=== PATIENT | male | born 1930 | race Caucasian/White ===

== ENCOUNTER 2016-06-07 06:57 | Day surgery (SDC) | payer MEDICARE, BC ==
[~2016-06-07] VITALS: Ht 167.6 cm; Wt 57.7 kg
[2016-08-22] MEDS ORDERED: REMERON DPS15 MG PO (10:37)
[2016-08-22] MEDS ORDERED: AUGMENTIN 875-1 EACH PO (10:38)
[2016-08-22] MEDS ORDERED: PEPCID DPS20 MG PO (10:38)
[2016-08-22] MEDS ORDERED: FLOMAX DPS0.4 MG PO (10:38)
[2016-08-22] MEDS ORDERED: MIRALAX PACKET17 GM PO (10:38)
[2016-08-22] MEDS ORDERED: OXY IR DPS5 MG PO (10:38)
[2016-08-22] MEDS ORDERED: ECOTRIN81 MG PO (10:38)
[2016-08-22] MEDS ORDERED: ZESTRIL DPS2.5 MG PO (10:39)
[2016-08-22] MEDS ORDERED: PROSCAR DPS5 MG PO (10:39)
[2016-08-22] MEDS ORDERED: LOVENOX DP30 MG/0.3 PO (10:39)
[2016-08-22] MEDS ORDERED: TOPROL XL DPS25 MG PO (10:39)
== END 2016-06-07 11:18 | disposition home or self-care (01) ==
LOC: RAD.S 06:57 → EDSTATUS 08:00 → RAD.S 08:00
PROC: 3E0 Administration, Physiological Systems and Anatomical Regions, Introduction (ICD-10-PCS; principal; 2016-06-07)
DX: C78.7 Secondary malignant neoplasm of liver and intrahepatic bile duct (principal); Z85.038 Personal history of other malignant neoplasm of large intestine; Z98.890 Other specified postprocedural states

== ENCOUNTER 2016-06-16 06:33 | Day surgery (SDC) | payer MEDICARE, BC ==
[~2016-06-16] VITALS: Ht 167.6 cm; Wt 57.0 kg
[2016-08-22] MEDS ORDERED: REMERON DPS15 MG PO (10:37)
[2016-08-22] MEDS ORDERED: MIRALAX PACKET17 GM PO (10:38)
[2016-08-22] MEDS ORDERED: PEPCID DPS20 MG PO (10:38)
[2016-08-22] MEDS ORDERED: FLOMAX DPS0.4 MG PO (10:38)
[2016-08-22] MEDS ORDERED: AUGMENTIN 875-1 EACH PO (10:38)
[2016-08-22] MEDS ORDERED: ECOTRIN81 MG PO (10:38)
[2016-08-22] MEDS ORDERED: OXY IR DPS5 MG PO (10:38)
[2016-08-22] MEDS ORDERED: ZESTRIL DPS2.5 MG PO (10:39)
[2016-08-22] MEDS ORDERED: LOVENOX DP30 MG/0.3 PO (10:39)
[2016-08-22] MEDS ORDERED: TOPROL XL DPS25 MG PO (10:39)
[2016-08-22] MEDS ORDERED: PROSCAR DPS5 MG PO (10:39)
== END 2016-06-16 12:10 | disposition home or self-care (01) ==
LOC: RAD.S 06:33
PROC: 04H Lower Arteries, Insertion (ICD-10-PCS; principal; 2016-06-16)
DX: C78.7 Secondary malignant neoplasm of liver and intrahepatic bile duct (principal); C18.9 Malignant neoplasm of colon, unspecified; Z79.899 Other long term (current) drug therapy

== ENCOUNTER 2016-08-10 15:25 | Inpatient (IN) | payer MEDICARE, BC ==
[~2016-08-10] VITALS: Ht 172.7 cm; Wt 54.0 kg
--- NOTE | ~2016-08-10 | ECH ---
Transthoracic Echocardiography Report (TTE) Demographics Patient Name DUY BRIGHT Date of Study 08/16/2016 Patient Number [id number] Visit Number [id number] Date of 1930 Room Number 517 Accession Number [id number] Gender Male Age 86 year(s) Referring Frank Mcclain Microbiology Supervisor Callie Vargas [facility] Physician Physician Interpreting Candie Dobbins MD School Manager Physician Supervising Ordering Physician Frank Mcclain MD, MD/P Nurse Stress Roustabout Pusher Conclusions Summary Technically fair exam due large pectus excavatum. The estimated left ventricular ejection fraction is 20-25%. Diastolic assessment reveals Grade I diastolic dysfunction. The interatrial septum appears aneurysmal. No significant valvular abnormalities. Procedure Type of Study TTE procedure:Echo Complete SF. Procedure Date Date: 08/16/2016 Start: 08:13 AM Technical Quality: Adequate visualization Additional Indications:Postop Afib,BBB,Pectus Excavatum Appropriate Use Criteria: 9 Height: 68 inches Weight: 126 pounds BSA: 1.68 m Rhythm: Irregular HR: 70 bpm BP: 125/69 mmHg M-Mode/2D Measurements LV Diastolic Dimension: 5 cm LV Systolic Dimension: 4.7 cm LV Septum Diastolic: 0.8 cm LV PW Diastolic: 0.87 cm AO Root Dimension: 2.96 cm Cardiac Output: 3.81 l/min LA Dimension: 3.31 cm Cardiac Index: 2.27 l/min*m RV Diastolic Dimension: 3.71 cm LA volume index: 31 ml/m LVOT: 1.93 cm LVOT VTI: 18.6 cm RV Base: 2.8 cm LV Stroke volume: 54.39 ml RV Mid: 1.8 cm LV Stroke volume index: 32.38 ml/m TAPSE: 1.5 cm TDI-S': 14 cm/s Doppler Measurements AV Peak Velocity: 1.24 m/s MV Peak E-Wave: 0.44 m/s AV Peak Gradient: 6.13 mmHg MV Peak A-Wave: 0.69 m/s AV Mean Gradient: 2.9 mmHg MV E/A Ratio: 0.64 LVOT Peak Velocity: 0.83 m/s AV Area (Continuity):2.01 cm MV Deceleration Time: 305 msec TR Velocity:2.52 m/s TR Gradient:25.4 mmHg Estimated PASP: 28.4 mmHg Estimated RAP:3 mmHg A' Septal Velocity: 0.14 m/s Estimated RVSP: 28 mmHg A' Lateral Velocity: 0.1 m/s E' Septal Velocity: 0.05 m/s E' Lateral Velocity: 0.12 m/s RA Area: 14.04 cm Findings Left Ventricle The left ventricle is normal in size . Diastolic assessment reveals Grade I diastolic dysfunction. Right Ventricle Normal right ventricle structure and function. Left Atrium Normal left atrial size. The interatrial septum appears aneurysmal. Right Atrium Normal right atrial size. Mitral Valve Normal mitral valve structure and function. Trivial mitral regurgitation by color Doppler. Aortic Valve The aortic valve was not well imaged. Tricuspid Valve Normal tricuspid valve structure and function. Trivial tricuspid regurgitation by color Doppler. Normal pulmonary pressures. Pulmonic Valve The pulmonic valve is not well visualized. Pericardial Effusion No evidence of pericardial effusion. Miscellaneous Visualized portions of the aortic root appear normal in size. Ascending aorta not well visualized. Suboptimal subcostal window to evaluate the IVC and interatrial septum. Pleural Effusion No evidence of pleural effusion. Contractility Score LV regional wall motion:(0-Non visualized 1-Normal 2-Hypokinesis 3-Akinesis 4-Dyskinesis 5-Aneurysm) Signature
--- NOTE | ~2016-08-10 | CO ---
ADMIT: 08/10/2016 RM/LOC: 517 [facility] MR#: [id number] [address] [address] DUY BRIGHT [address] [place] [address] Consultation Report SEX: M AGE: 86 : 1930 DATE OF CONSULTATION: 08/10/2016 ATTENDING PHYSICIAN: Froylan Marie CONSULTING PHYSICIAN: Matt Alegria MD REASON FOR CONSULTATION: Bowel obstruction. HISTORY OF PRESENT ILLNESS: This patient is a very pleasant, 86-year-old male who looks like back in November Dr. Browne did a colonoscopy I believe over at the surgery center, found a mass in his cecum. Subsequent workup showed a large lesion in his liver and so no surgery was done. He has been undergoing I believe chemotherapy and had some radiation-type beads or treatments of some type done to his liver and this liver lesion. Now, however, he comes in with a bowel obstruction. In visiting with me, it sounds like he has not had any real BM or gas for maybe a couple of weeks. He has passed just a little small BM here today. He otherwise though actually looks pretty good other than he is quite thin. Weight is probably lost 40 pounds, weighs about 106 pounds now at this point. He has not really eaten anything since Tuesday, this makes him full. He has tried mag citrate, Senokot, and Dulcolax. PAST MEDICAL HISTORY: Significant for the above. He has had previous hernia repair years ago somewhere else before he lived in the area. MEDICATIONS: He takes some pantoprazole for GERD. ALLERGIES: HE HAS NO KNOWN DRUG ALLERGIES. SOCIAL HISTORY: Denies any significant tobacco, alcohol, or illicit drugs. FAMILY HISTORY: Otherwise, noncontributory. PHYSICAL EXAMINATION: VITAL SIGNS: He is afebrile. Vital signs are stable. HEENT: His sclerae are nonicteric. CHEST: Appears clear anteriorly. HEART: Regular rate and rhythm. ABDOMEN: Thin, soft, mild distention and a little bit of discomfort in the lower abdomen when pushing. He does have positive bowel sounds. Well-healed repair from previous right inguinal hernia. EXTREMITIES: Without any clubbing, cyanosis, or edema. ADMIT: 08/10/2016 RM/LOC: 517 [facility] MR#: [id number] [address] [address] KAILADUY DYER [address] [place] [address] Consultation Report SEX: M AGE: 86 : 1930 ASSESSMENT AND PLAN: I had a long talk with GI, said this certainly look to be a fairly significant obstruction. I doubt that this can relieve itself on his own and most likely going to require surgery. That may require removing the mass, resecting bowel possibly leaving him with an ostomy just depends on what we find when we get in there. May be our only option, I do not have anything else good if he does not open up and from the looks of his CT scan. I talked to him about thinking about that, and we are going to have to make some decisions soon. I talked to him about the possibility if we do not do anything with this perforating him getting sick and dying of sepsis from that. We will revisit in the morning, but most likely in the next 24 to 48 hours, he is going to need surgery. Matt Alegria MD/ edith JOB #: [id number] CC: Froylan Marie, Attending Physician Froylan Marie, Family Physician
--- NOTE | 2016-08-13 09:05 | ER ---
ADMIT: 08/10/2016 RM/LOC: 517 [facility] MR#: [id number] 2620 [facility] [address] [place] [id number] DUY BRIGHT [address] [place] [address] Emergency Room Report SEX: M AGE: 86 : 1930 DATE: 08/10/2016 ADDENDUM: Please see my T-sheet for complete review of systems, past medical history, and physical exam. CHIEF COMPLAINT: Constipation. HISTORY OF PRESENT ILLNESS: This is an 86-year-old, white male, who presents with 7 days of constipation. The patient was actually brought here by a neighbor today as he has not been eating since Tuesday and she was concerned about him. 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 Describes pain as a 5/10 with some fullness. He has some associated nausea. No vomiting. Loss of appetite. The patient states he did use mag citrate this morning in an attempt to get his bowels to move. He has been using Dulcolax suppositories and Senokot as well. The patient states that he has not been taking care of himself very well as much of his time is devoted to taking care of his who lives at home with the patient with dementia. PAST MEDICAL HISTORY: Liver cancer and colon cancer and stated above. ALLERGIES: NO KNOWN DRUG ALLERGIES. COURSE IN THE EMERGENCY ROOM: The patient was seen and examined. He is afebrile and nontoxic. He does have significant distention and tenderness about his entire abdomen. No guarding or rebound. Back is normal inspection. Skin is warm and dry. I did get a KUB on him initially concerning for possible small bowel obstruction. Recommended followup CT. Did complete CT abdomen and pelvis IV contrast, shows a small bowel obstruction, transition point in the right lower quadrant. CBC; white count 4.7, hemoglobin 12, hematocrit 36.1, platelets 186. Chemistry; sodium 137, potassium 4.1, BUN 18, glucose 78, creatinine 1.2. I did phone Dr. Marie, made him familiar with the patient. He will admit to the hospital for further evaluation and management. IMPRESSION: 1. Small bowel obstruction. 2. Colon cancer metastatic to the liver. DISPOSITION: The patient will be admitted to the care of Dr. Marie. Discharged to the floor in stable condition. PARISH Retana / Mahendra Le MD / modl JOB #: [id number] CC: Froylan Marie MD, Attending Physician ADMIT: 08/10/2016 RM/LOC: [address] [place] [address] MR#: [id number] [address] [place] [id number] DUY BRIGHT [address] [place] [address] Emergency Room Report SEX: M AGE: 86 : 1930 Froylan Marie MD, Family Physician
--- NOTE | 2016-08-14 08:50 | HP ---
ADMIT: 08/10/2016 RM/LOC: 517 [facility] MR#: [id number] 26[address] [facility] [address] [place], [place] [address] DUY BRIGHT [address] [place] [address] History and Physical SEX: M AGE: 86 : 1930 DATE OF SERVICE: 08/10/2016 CHIEF COMPLAINT: Abdominal pain. HISTORY OF PRESENT ILLNESS: This is an 86-year-old, who presented with some abdominal pain. He reports he has not had a bowel movement in about two weeks. He is actually uncertain of how long it has been. He has had some crampy abdominal pain, which has been severe. He denies passing gas, stool. He said "a while ago," he had some loose stools, but nothing recent and definitely not in the last week. He says he has not had anything to eat since Tuesday. He feels really weak and overall not well. His situation is overall complicated by him having full caretaking responsibilities for his who has dementia. Apparently, he has been trying to get her into [facility], but this just has not happened yet due to he and the family are unwilling as to really commit to having this done. PAST MEDICAL HISTORY: Metastatic colon cancer. CURRENT MEDICATIONS: The patient reports he is not really taking any medications at this point. The only medications that he was taking was magnesium citrate, Senokot, and Dulcolax. ALLERGIES: HE DENIES ANY ALLERGIES. PAST SURGICAL HISTORY: Includes hernia repair. REVIEW OF SYSTEMS: Other complete review of systems, loss of appetite and some nausea. FAMILY HISTORY: Reviewed, but noncontributory. PHYSICAL EXAMINATION: VITAL SIGNS: From the emergency room, blood pressure 154/78, heart rate 73, respirations 16, temperature 97.0, and 100% on room air. GENERAL: This is a thin appearing 86-year-old gentleman. No apparent distress. He is alert. He is oriented. HEENT: He is wearing glasses. Head is normocephalic and atraumatic. He is wearing a hat to keep himself warm. Throat is clear. Pupils are equal, round, and reactive to light and accommodation. Extraocular muscles are intact. NECK: Supple. Trachea midline. Thyroid not palpable. HEART: Regular rate and rhythm. LUNGS: Diminished, but clear bilaterally. He has pectus excavatum. ABDOMEN: Mildly distended, soft, and tender to deep palpation especially in the right lower quadrant. LOWER EXTREMITIES: Thin. He can move all extremities equally bilaterally. NEUROLOGIC: Cranial nerves are intact. ADMIT: 08/10/2016 RM/LOC: 517 [facility] MR#: [id number] [address] [address] DUY BRIGHT [address] [place] [address] History and Physical SEX: M AGE: 86 : 1930 LABORATORY AND X-RAY DATA: He had moderately distended gas-filled loops of bowel on x-ray. CT showed small bowel obstruction due to a hyperemic 4.7 mass in the right lower quadrant, and he also has a known large metastatic mass in the right lobe of the liver, which is unchanged. CBC shows a white count of 4.7, hemoglobin 12.0, and platelets of 196. CMP; sodium 137, potassium 4.0, chloride 99, bicarb 28, BUN 18, creatinine 1.8, albumin 3.0, AST is 49, and calcium is 10.0. ASSESSMENT: 1. Small bowel obstruction. 2. Metastatic colon cancer. 3. Malnutrition by history. PLAN: He will be admitted to the hospital, given some IV fluid, and we will consult Surgery for possible surgical correction of this issue. His most recent CT from three weeks ago does not mention the right lower quadrant mass; however, going upon further review, I have looked back in his previous scans, and it is a cecal mass that is commented on back in April. We will control his pain as best we can. In regard to his social situation, we will have our social workers to try to help get his into [facility], which is where they have been leading her to go anyway. Since we will have to do no anticoagulation for VTE prophylaxis right now because of his chance for upcoming surgeries, probably TEDs and pneumatics for now. Froylan Marie MD/ edith JOB #: [id number] CC: Froylan Marie, Attending Physician Froylan Marie, Family Physician
[2016-08-22] MEDS ORDERED: REMERON DPS15 MG PO (10:37)
[2016-08-22] MEDS ORDERED: OXY IR DPS5 MG PO (10:38)
[2016-08-22] MEDS ORDERED: MIRALAX PACKET17 GM PO (10:38)
[2016-08-22] MEDS ORDERED: ECOTRIN81 MG PO (10:38)
[2016-08-22] MEDS ORDERED: FLOMAX DPS0.4 MG PO (10:38)
[2016-08-22] MEDS ORDERED: AUGMENTIN 875-1 EACH PO (10:38)
[2016-08-22] MEDS ORDERED: PEPCID DPS20 MG PO (10:38)
[2016-08-22] MEDS ORDERED: ZESTRIL DPS2.5 MG PO (10:39)
[2016-08-22] MEDS ORDERED: TOPROL XL DPS25 MG PO (10:39)
[2016-08-22] MEDS ORDERED: PROSCAR DPS5 MG PO (10:39)
[2016-08-22] MEDS ORDERED: LOVENOX DP30 MG/0.3 PO (10:39)
--- NOTE | 2016-08-25 16:19 | OR ---
ADMIT: 08/10/2016 RM/LOC: 517 [facility] MR#: [id number] 2620 [facility] [address] [place] [phone] DUY BRIGHT [address] [place] [address] Operative/Delivery Room Report SEX: M AGE: 86 : 1930 SURGERY DATE: 08/11/2016 SURGEON: Matt Alegria MD PREOPERATIVE DIAGNOSIS: Bowel obstruction secondary to cecal mass. POSTOPERATIVE DIAGNOSIS: Bowel obstruction secondary to cecal mass. PROCEDURE: Open right hemicolectomy. ASSISTANTS: Chuckie Browne MD and PARISH Tavarez. ANESTHESIA: General endotracheal tube anesthesia. ESTIMATED BLOOD LOSS: 100 mL. INDICATION FOR PROCEDURE: Please see consult notes in chart after the specimen was right colon. After the risks, benefits, possible complications, and alternatives have been explained, and informed consent had been obtained, the patient was taken back to the operating room, underwent general endotracheal tube anesthesia, and the surgical field was prepped and draped in a sterile manner. A midline incision was made down through skin and subcutaneous tissue, got into the fascia, opened it up, and for the length of the incision that was enlarged. Started removing some of the small bowel, and actually he has had no other surgeries. No significant adhesions. Basically right where the terminal ileum comes in at the ileocecal valve, it is obstructed right at this mass, the size of a baseball at his cecum. Slowly, started kind of freeing up the lateral attachments of the right colon and in doing that trying to make sure he is so thin and this was stuck pretty good that we were identifying the ureter. At one point, things were really kind of caught up down there and so I kind of moved on, went up and took down the hepatic flexure. Clamped, divided, and ligated some vessels. He had a lot of oozing just from some extra kind of venous type vessels and stuff along the peritoneum laterally and up around there. We lost a little blood, but nothing significant. Cleaned off some of the omentum coming off the transverse colon, picked an area distally. I thought was going to be good as well as proximally. Clamped, divided, and ligated the right branch of the middle colic and the ileocolic vessel, divided the transverse colon in the distal small bowel with DARIA stapler and then ultimately, like I said, we identified nicely the ureter but there was some ADMIT: 08/10/2016 RM/LOC: 517 [facility] MR#: [id number] [address] [address] DUY BRIGHT [address] [place] [address] Operative/Delivery Room Report SEX: M AGE: 86 : 1930 little bit of good [place] vessels that were coming right up into this kind of mass and so, we clamped, divided, and ligated those. Then fully removed the specimen from the field. Irrigated, maintained some hemostasis with electrocautery. Irrigated everything out. Once that was all done, we ended up creating a [id number] end anastomosis of the distal small bowel to the transverse colon using DARIA 75 stapler and closed it off with that as well. Reinforced the crotch of the anastomosis and along the staple lines with 3-0 GI silk suture. Again irrigated things out, watched, maintained hemostasis. Returned it to the abdominal cavity and then closed with a running looped PDS superiorly and inferiorly tying in the middle. Washed out the subcutaneous tissue and closed the skin with brandon. He tolerated it well. He was extubated and taken to recovery room in stable and satisfactory condition. Matt Alegria MD/ edith JOB #: [id number] CC: Froylan Marie, Attending Physician Froylan Marie, Family Physician
--- NOTE | 2016-08-29 08:54 | DS ---
ADMIT: 08/10/2016 RM/LOC: 517 [facility] MR#: [id number] [address] [address] [place] [address] General Discharge Summary SEX: M AGE: 86 : 1930 ADMISSION DATE: 08/10/2016 DISCHARGE DATE: 08/20/2016 FINAL DIAGNOSES: 1. Obstruction with right-sided colon mass secondary to metastatic colon cancer, status post resection. 2. Weakness. 3. Malnutrition. 4. 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 5. Atrial fibrillation. 6. Left bundle-branch block. REASON FOR ADMISSION: This is an 86-year-old gentleman, presented with abdominal pain. He was admitted and then found to have colon obstruction by CAT scan. Ultimately, felt like he had to have surgery, so this was set up. He went through the surgery without any difficulty. Afterwards, he felt pretty weak, he had a run of AFib. An echocardiogram was done, showing a low EF. Cardiology consult obtained. They felt that the outpatient management would be appropriate. The patient's diet was advanced very slowly. He continued to feel pretty weak. He had some parenteral nutrition. He was not eating well. He did have some bowel movements; however, they were liquid, was not very motivated to move around. We added heart failure medicines. His main complaint was his toenails. We tried to get this arranged in the hospital, but were unsuccessful. Ultimately, he was found to be acceptable candidate to go over to [facility], so this was done and followup with [facility] in about a month, follow up with Dr. Alegria per his schedule as well. DISCHARGE MEDICATIONS: 1. Aspirin 81 mg daily. 2. Flomax 0.4 mg daily. 3. Pepcid 20 mg daily. ADMIT: 08/10/2016 RM/LOC: 517 [facility] MR#: [id number] [address] [facility] [address] [place], [place] [address] DUY BRIGHT [facility], [place] [address] General Discharge Summary SEX: M AGE: 86 : 1930 4. Proscar 5 mg daily. 5. Toprol-XL 25 mg daily. 6. Zestril 2.5 mg daily. 7. Lovenox 40 mg subcu daily for 7 days. 8. Maalox p.r.n. 9. Oxycodone 5 mg q.4 p.r.n. 10.Tylenol 325 mg two tabs q.4 p.r.n. DISCHARGE INSTRUCTIONS: He will have daily weights, PT, OT, regular diet. CBC and CMP in 1 week and see me in 1 week as well. It should be noted that he had some urinary retention, had a catheter placed so this will be attempted to be removed once he gets over to [facility]. Froylan Marie MD/ anuradhal JOB #: [id number] CC: Froylan Marie MD, Attending Physician Froylan Marie MD, Family Physician
--- NOTE | 2016-09-03 16:19 | CO ---
ADMIT: 08/10/2016 RM/LOC: [facility] MR#: [id number] [address] [id number] DUY BRIGHT [address] [place] [address] Consultation SEX: M AGE: 86 : 1930 DATE OF CONSULTATION: 08/16/2016 ATTENDING PHYSICIAN: Froylan Marie CONSULTING PHYSICIAN: Gary England MD REASON FOR CONSULT: Cardiomyopathy. Gauri Clarke RN scribing for Dr. Gray England. HISTORY OF PRESENT ILLNESS: Duy is a pleasant 86-year-old gentleman, I have been asked to see in Cardiology consultation by Dr. Marie for cardiomyopathy, newly diagnosed. He was admitted on August 10 with history of colon cancer, liver cancer with a bowel obstruction and underwent surgery. He tolerated surgery well. He has reported about a 40-pound weight loss in the last few months. He tolerated surgery well, but is very weak and is just starting to be able to have any oral intake, which is very minimal. Postoperatively, he had a very brief episode of paroxysmal atrial fibrillation, and EKG demonstrates left-bundle branch block. I do not have a prior EKG for comparison and he had no prior history of atrial fibrillation before this. Echocardiogram was done this morning, which demonstrates an ejection fraction of 20% to 25% with no valvular abnormalities. He denies any orthopnea or peripheral edema. He denies any shortness of breath. His main complaint is generalized weakness. He was started on NARGIS inhibitor by primary care today. He was already on Toprol-XL. He denies any chest pain, shortness of breath, palpitations, presyncope, orthopnea, or peripheral edema. PAST MEDICAL HISTORY: Recent bowel obstruction, colon cancer, liver, undergoing chemotherapy and some radiation type beads or treatments to the liver. PAST SURGICAL HISTORY: Hernia repair and recent surgery for bowel obstruction. ALLERGIES: NO KNOWN MEDICATION ALLERGIES. MEDICATIONS: 1. Flomax 0.4 at bedtime. 2. Proscar 5 daily. 3. Toprol-XL 25 daily. 4. Lovenox 40 subcutaneous daily. 5. D5 LR 50 mL an hour. 6. Pepcid 20 mg IV daily. 7. Lisinopril 2.5 daily. FAMILY HISTORY: Noncontributory. SOCIAL HISTORY: Duy is . Up until his hospitalization, he had been caring for his , who has dementia. No tobacco history, alcohol, or drug ADMIT: 08/10/2016 RM/LOC: [facility] MR#: [id number] [address] [id number] KAILADUY DYER [address] [place] [address] Consultation SEX: M AGE: 86 : 1930 use. His diet has been very limited because of his health. REVIEW OF SYSTEMS: GENERAL: He has lost about 40 pounds in the last few months. No recent fever, or chills. He has increased fatigue and weakness generalized over several months. EYES: Denies double vision, blurred vision, cataracts, or glaucoma. ENT: Denies hearing loss or problems with nose, mouth or throat. PULMONARY: Denies cough, sputum production, asthma, emphysema or bronchitis. Denies snoring loudly, wakefulness at night, or fatigue upon awakening. GASTROINTESTINAL: Recent colon obstruction with colon cancer, liver cancer possibly. Denies heartburn or difficulty swallowing. No change in bowel habits. Denies dark or bloody stools. No history of ulcers, hiatal hernia, or gallbladder or liver disease. GENITOURINARY: Denies dysuria, hematuria, nocturia, urinary tract infection, or kidney stones. Denies history of renal insufficiency or failure. MUSCULOSKELETAL: Denies history of arthritis or gout. Denies muscle or joint pains. ENDOCRINE: Denies history of thyroid dysfunction or diabetes. HEMATOLOGIC: Colon cancer. Positive for anemia. Denies history of easy bruising. NEUROLOGIC: Denies chronic headaches, dizziness, syncope, stroke, seizures or numbness or tingling. PSYCHIATRIC: Denies history of mental illness or feelings of depression. PHYSICAL EXAMINATION: VITAL SIGNS: Blood pressure 123/60, heart rate 66, respirations 14, temperature 98.3, and oxygenation 95% on room air. SKIN: [place], warm and dry. EYES: Sclerae clear. No xanthelasmas. ENT: Oral mucosa is pink and moist. No jugular venous distention or carotid bruits. CHEST: Decreased breath sounds bilaterally. HEART: Regular rate and rhythm. Normal S1, S2. No murmurs, rubs or gallops. ABDOMEN: Soft and nontender. MUSCULOSKELETAL: Gait is normal. EXTREMITIES: Peripheral pulses palpable. No clubbing, cyanosis or edema. PSYCHIATRIC: Alert and oriented. Mood and affect are appropriate. DIAGNOSTIC DATA: Echo on 08/16, showed EF of 20% to 25% with no valvular abnormalities. Sodium 131, potassium 4.1, BUN 16, creatinine 0.9, and glucose 121. White blood cell count 5.1, hemoglobin 9.4, hematocrit 29.3, and platelets 197. ASSESSMENT/PLAN: 1. New cardiomyopathy. 2. Brief paroxysmal atrial fibrillation. 3. Left bundle-branch block. 4. Hypertension. 5. Colon cancer, status post surgery. ADMIT: 08/10/2016 RM/LOC: [facility] MR#: [id number] [address] [place] [id number] DUY BRIGHT [address] [place] [address] Consultation SEX: M AGE: 86 : 1930 Currently, Duy's volume status looks okay. He will continue with IV fluids for now and add diuretics in the future if needed. His ejection fraction is 20% to 25%. I discussed with him and his family today that this could be due to illness, chemotherapy, coronary artery disease, or another cause. He will continue on NARGIS inhibitor and beta-jeison for now, I would not change any medications currently. At some point, he will need ischemic evaluation and repeat echocardiogram, but I would discuss with them that I would give him some time to recover from his recent surgery and decide how aggressive he wants to be in the future. I will continue to follow him closely. Thank you for the consultation. "I have read and agree with the documentation that has been completed regarding this visit. By signing this record, I attest that the documentation was completed in my physical presence and is an accurate record of the encounter." Gauri Clarke RN / Gary England MD / edith JOB #: [id number] CC: Froylan Marie, Attending Physician Froylan Marie, Family Physician
== END 2016-08-20 15:18 | DRG 330 ==
LOC: ER 15:25 → 5MS 17:00
PROVIDERS: ADMIT Internal Medicine
PROC: 0DTF0ZZ Resection of Right Large Intestine, Open Approach (ICD-10-PCS; principal; 2016-08-11)
DX: C18.9 Malignant neoplasm of colon, unspecified (principal); K56.60 Unspecified intestinal obstruction; C78.7 Secondary malignant neoplasm of liver and intrahepatic bile duct; E44.0 Moderate protein-calorie malnutrition; I42.9 Cardiomyopathy, unspecified; I48.0 Paroxysmal atrial fibrillation; I44.7 Left bundle-branch block, unspecified; I10 Essential (primary) hypertension